=== PATIENT | male | born 1930 | race Caucasian/White ===

== ENCOUNTER 2017-08-28 12:18 | Inpatient (IN) | payer OTHER ==
[2017-08-28] VITALS (7 sets, daily range): BP systolic 77–154; BP diastolic 44–97
[~2017-08-28] VITALS: Ht 172.7 cm; Wt 85.2 kg
[2017-08-28 12:42] LABS: BASOPHIL COUNT 0.1 K/uL (0-0.1); EOSINOPHIL (%) 4.1 % (0-5); EOSINOPHIL COUNT 0.3 K/uL (0-0.3); HEMATOCRIT 38.5 % (38.0-50.0); IMMATURE GRANULOCYTE (%) 1.9 % (0.0-0.7); IMMATURE GRANULOCYTE COUNT 0.1 K/uL; INSTRUMENT ABS NEUTROPHIL CT 5.4 K/uL; MCHC 31.9 G/DL (30.0-36.0); MCV 90.8 FL (86-99); MEAN PLAT.VOLUME 11.4 uM^3 (9.0-12.4); MONOCYTE (%) 7.5 % (3-12); MONOCYTE COUNT 0.6 K/uL (0-0.8); NEUTROPHIL (%) 72.8 % (45-76); NEUTROPHIL COUNT 5.4 K/uL (1.8-6.4); PLATELET COUNT 149 K/uL (156-360); RBC DIS.WIDTH-CV 15.1 % (11.8-14.6); RBC DIS.WIDTH-SD 50.4 % (39-53); RED BLOOD COUNT 4.24 M/uL (4.00-5.50); WHITE BLOOD COUNT 7.4 K/uL (4.1-10.2)
[2017-08-28 12:54] LABS: AMYLASE 88 IU/L (1-118); CHLORIDE 103 mEq/L (99-109); POTASSIUM 3.8 mEq/L (3.7-5.4); SODIUM 143 mEq/L (136-147)
[2017-08-28 12:56] LABS: GLUCOSE 104 mg/dL (70-99)
[2017-08-28 12:57] LABS: ANION GAP 8 MEQ/L (2-14)
[2017-08-28 12:59] LABS: SERUM ETHYL ALCOHOL < 10 mg/dL
[2017-08-28 13:00] LABS: GFR ESTIMATE (CALCULATED) > 59 mL/min/
[2017-08-28 13:01] LABS: UREA NITROGEN (BUN) 25 mg/dL (9-23)
[2017-08-28 13:03] LABS: LIPASE 73 U/L (1.0-51.0)
[2017-08-28 14:01] LABS: ADD MIUA? YES; BILIRUBIN NEGATIVE; BLOOD LARGE; COLOR STRAW ((YELLOW)); GLUCOSE (STRIP) NEGATIVE; KETONES NEGATIVE; LEUKOCYTES NEGATIVE; NITRITE NEGATIVE; PROTEIN (STRIP) NEGATIVE; UROBILINOGEN 0.2 MG/DL (0.2-1.0)
[2017-08-28 14:10] LABS: AMPHETAMINE NEGATIVE (500 ng/mL); BACTERIA NONE SEEN /HPF; BARBITURATES NEGATIVE (200 ng/mL); BENZODIAZEPINES NEGATIVE (150 ng/mL); COCAINE NEGATIVE (150 ng/mL); EPITHELIAL CELLS NONE SEEN /HPF; INTERNAL CONTROLS VALID? YES; METHADONE NEGATIVE (200 ng/mL); METHAMPHETAMINE NEGATIVE (500 ng/mL); MUCUS TRACE /LPF; OPIATES (MORPHINE) NEGATIVE (100 ng/mL); OXYCODONE NEGATIVE (100 ng/mL); PHENCYCLIDINE NEGATIVE (25 ng/mL); PROPOXYPHENE NEGATIVE (300 ng/mL); RED BLOOD CELLS TNTC /HPF (0-5); THC CANNABINOIDS NEGATIVE (50 ng/mL); TRICYCLIC ANTIDEPRESSANTS NEGATIVE (300 ng/mL); UCUL ADDED? YES; WHITE BLOOD CELLS 0-5 /HPF (0-5)
[2017-08-28] MEDS ORDERED: CARVEDILOL25 MG PO (14:59)
[2017-08-28] MEDS ORDERED: LASIX80 MG PO (14:59)
[2017-08-28] MEDS ORDERED: ASPIRIN81 M2 PO (15:00)
[2017-08-28] MEDS ORDERED: ATORVASTATIN CA20 MG PO (15:00)
[2017-08-28] MEDS ORDERED: IRON18 MG PO (15:01)
[2017-08-28] MEDS ORDERED: CENTRUM SILVER1 EAC5 PO (15:01)
[2017-08-28] MEDS ORDERED: CALCIUM + VITA1 EAC2 PO (15:02)
[2017-08-28] MEDS ORDERED: PRESERVISION T1 EACH PO (15:02)
[2017-08-28 18:39] LABS: METH RESISTANT S AUREUS PCR NEGATIVE (NEGATIVE)
[2017-08-28 19:05] LABS: PROBE CHECK PASS; SPECIMEN PROCESSING CONTROL PASS
[2017-08-29] VITALS (14 sets, daily range): BP systolic 0–130; BP diastolic 0–68
[2017-08-29 06:30] LABS: HEMATOCRIT 29.5 % (38.0-50.0); MCH 29.3 PG (29.0-34.0); MCHC 32.2 G/DL (30.0-36.0); MEAN PLAT.VOLUME 12.1 uM^3 (9.0-12.4); PLATELET COUNT 117 K/uL (156-360); RBC DIS.WIDTH-CV 15.2 % (11.8-14.6); RBC DIS.WIDTH-SD 50.8 % (39-53); WHITE BLOOD COUNT 9.2 K/uL (4.1-10.2)
[2017-08-29 06:48] LABS: ALKALINE PHOSPHATASE 53 IU/L (3-129); ANION GAP 7 MEQ/L (2-14); CHLORIDE 104 MEQ/L (99-109); GFR ESTIMATE (CALCULATED) 47 mL/min/; GLUCOSE 129 mg/dL (70-99); POTASSIUM 3.8 MEQ/L (3.7-5.4); SAMPLE HEMOLYSIS CHECK 0; SAMPLE ICTERIC CHECK 0; SAMPLE LIPEMIA CHECK 0; SODIUM 145 MEQ/L (136-147); TOTAL BILIRUBIN 0.8 MG/DL (0.0-1.0); UREA NITROGEN (BUN) 31 mg/dL (9-23)
[2017-08-29 06:50] LABS: RED BLOOD COUNT 3.24 M/uL (4.00-5.50)
[2017-08-29 11:06] LABS: LACTATE DEHYDROGENASE 219 IU/L (20-246); URIC ACID 6.8 mg/dL (3.1-9.2)
[2017-08-29 12:43] LABS: EOSINOPHIL (%) 2.3 % (0-5); EOSINOPHIL COUNT 0.2 K/uL (0-0.3); HEMATOCRIT 28.5 % (38.0-50.0); IMMATURE GRANULOCYTE (%) 0.3 % (0.0-0.7); INSTRUMENT ABS NEUTROPHIL CT 7.2 K/uL; LYMPHOCYTE COUNT 0.9 K/uL (1.0-2.8); MCH 29.8 PG (29.0-34.0); MCHC 32.6 G/DL (30.0-36.0); MCV 91.3 FL (86-99); MEAN PLAT.VOLUME 12.3 uM^3 (9.0-12.4); MONOCYTE (%) 7.9 % (3-12); MONOCYTE COUNT 0.7 K/uL (0-0.8); NEUTROPHIL (%) 79.2 % (45-76); NEUTROPHIL COUNT 7.2 K/uL (1.8-6.4); NRBC (%) 0.4 /100 WBC (0-0); PLATELET COUNT 115 K/uL (156-360); RBC DIS.WIDTH-CV 15.3 % (11.8-14.6); RBC DIS.WIDTH-SD 50.7 % (39-53); RED BLOOD COUNT 3.12 M/uL (4.00-5.50); WHITE BLOOD COUNT 9.1 K/uL (4.1-10.2)
[2017-08-29 12:46] LABS: INTER. NORMALIZED RATIO 1.2; PROTHROMBIN TIME 13.3 SEC (10.2-12.9)
[2017-08-29 12:49] LABS: PTT 29.3 SEC (25-37)
[2017-08-30] VITALS (8 sets, daily range): BP systolic 94–130; BP diastolic 54–69
[2017-08-30 05:27] LABS: BASOPHIL COUNT 0.1 K/uL (0-0.1); EOSINOPHIL (%) 4.5 % (0-5); EOSINOPHIL COUNT 0.5 K/uL (0-0.3); HEMATOCRIT 28.7 % (38.0-50.0); IMMATURE GRANULOCYTE (%) 0.4 % (0.0-0.7); INSTRUMENT ABS NEUTROPHIL CT 7.7 K/uL; LYMPHOCYTE COUNT 0.8 K/uL (1.0-2.8); MCH 29.2 PG (29.0-34.0); MCHC 31.7 G/DL (30.0-36.0); MEAN PLAT.VOLUME 12.2 uM^3 (9.0-12.4); MONOCYTE (%) 8.6 % (3-12); MONOCYTE COUNT 0.9 K/uL (0-0.8); NEUTROPHIL (%) 77.6 % (45-76); NEUTROPHIL COUNT 7.7 K/uL (1.8-6.4); PLATELET COUNT 111 K/uL (156-360); RBC DIS.WIDTH-CV 15.4 % (11.8-14.6); RBC DIS.WIDTH-SD 51.3 % (39-53); RED BLOOD COUNT 3.12 M/uL (4.00-5.50)
[2017-08-30 05:35] LABS: INTER. NORMALIZED RATIO 1.1; PROTHROMBIN TIME 12.6 SEC (10.2-12.9)
[2017-08-30 05:37] LABS: PTT 27.8 SEC (25-37)
[2017-08-30 05:53] LABS: ANION GAP 5 MEQ/L (2-14); CHLORIDE 101 MEQ/L (99-109); GFR ESTIMATE (CALCULATED) 55 mL/min/; GLUCOSE 125 mg/dL (70-99); POTASSIUM 3.7 MEQ/L (3.7-5.4); SAMPLE HEMOLYSIS CHECK 0; SAMPLE ICTERIC CHECK 0; SAMPLE LIPEMIA CHECK 0; SODIUM 140 MEQ/L (136-147); UREA NITROGEN (BUN) 31 mg/dL (9-23)
[2017-08-30 11:23] LABS: HPCA INDEX 0.15
[2017-08-30 11:24] LABS: HIV INDEX 0.08; HIV-1/2 AB/AG COMBO Nonreactive
[2017-08-31 04:33] VITALS: BP 127/58
[2017-08-31 07:00] LABS: EOSINOPHIL (%) 4.3 % (0-5); EOSINOPHIL COUNT 0.4 K/uL (0-0.3); IMMATURE GRANULOCYTE (%) 0.5 % (0.0-0.7); INSTRUMENT ABS NEUTROPHIL CT 6.5 K/uL; LYMPHOCYTE COUNT 0.9 K/uL (1.0-2.8); MCHC 31.9 G/DL (30.0-36.0); MCV 90.9 FL (86-99); MEAN PLAT.VOLUME 12.1 uM^3 (9.0-12.4); MONOCYTE (%) 9.9 % (3-12); MONOCYTE COUNT 0.9 K/uL (0-0.8); NEUTROPHIL (%) 74.4 % (45-76); NEUTROPHIL COUNT 6.5 K/uL (1.8-6.4); PLATELET COUNT 104 K/uL (156-360); RBC DIS.WIDTH-CV 14.9 % (11.8-14.6); RBC DIS.WIDTH-SD 49.6 % (39-53); RED BLOOD COUNT 2.97 M/uL (4.00-5.50); WHITE BLOOD COUNT 8.8 K/uL (4.1-10.2)
[2017-08-31 07:25] LABS: ANION GAP 5 MEQ/L (2-14); CHLORIDE 103 MEQ/L (99-109); GFR ESTIMATE (CALCULATED) > 59 mL/min/; GLUCOSE 125 mg/dL (70-99); POTASSIUM 4.1 MEQ/L (3.7-5.4); SAMPLE HEMOLYSIS CHECK 0; SAMPLE ICTERIC CHECK 0; SAMPLE LIPEMIA CHECK 0; SODIUM 142 MEQ/L (136-147); UREA NITROGEN (BUN) 29 mg/dL (9-23)
[2017-08-31 08:06] VITALS: BP 138/72
[2017-08-31 11:44] VITALS: BP 132/67
[2017-08-31 15:34] VITALS: BP 114/59
[2017-08-31 19:32] VITALS: BP 120/58
[2017-09-01 00:08] VITALS: BP 160/88
[2017-09-01 04:11] VITALS: BP 114/56
[2017-09-01 08:07] VITALS: BP 138/79
[2017-09-01 10:45] LABS: Flow Clinical Information NOT PROVIDED (()); Flow Number of Markers 14 (()); Flow Spec Viability 62 % (()); Flow Specimen Type LYMPH NODE (())
[2017-09-01 12:14] VITALS: BP 109/60
[2017-09-01 16:30] VITALS: BP 151/79
[2017-09-01 20:18] VITALS: BP 106/58
[2017-09-02 00:32] VITALS: BP 126/71
[2017-09-02 04:07] VITALS: BP 139/86
[2017-09-02 08:09] VITALS: BP 161/75
[2017-09-02 09:58] LABS: EOSINOPHIL (%) 2.6 % (0-5); EOSINOPHIL COUNT 0.2 K/uL (0-0.3); IMMATURE GRANULOCYTE (%) 0.2 % (0.0-0.7); INSTRUMENT ABS NEUTROPHIL CT 7.3 K/uL; LYMPHOCYTE COUNT 0.6 K/uL (1.0-2.8); MCH 28.7 PG (29.0-34.0); MCHC 31.7 G/DL (30.0-36.0); MCV 90.3 FL (86-99); MEAN PLAT.VOLUME 11.5 uM^3 (9.0-12.4); MONOCYTE (%) 6.5 % (3-12); MONOCYTE COUNT 0.6 K/uL (0-0.8); NEUTROPHIL (%) 83.4 % (45-76); NEUTROPHIL COUNT 7.3 K/uL (1.8-6.4); RBC DIS.WIDTH-CV 14.4 % (11.8-14.6); RBC DIS.WIDTH-SD 47.6 % (39-53); RED BLOOD COUNT 3.21 M/uL (4.00-5.50); WHITE BLOOD COUNT 8.7 K/uL (4.1-10.2)
[2017-09-02 10:01] LABS: PLATELET COUNT 151 K/uL (156-360)
[2017-09-02 11:28] VITALS: BP 116/56
[2017-09-02 16:39] VITALS: BP 117/71
[2017-09-02 20:11] VITALS: BP 146/70
[2017-09-03 01:03] VITALS: BP 118/61
[2017-09-03 04:00] VITALS: BP 138/91
[2017-09-03 08:47] LABS: MNPH Specimen Volume 825 mL (())
[2017-09-03] MEDS ORDERED: Milk Of Magnesia,MOM PO (11:00)
[2017-09-03] MEDS ORDERED: MAG-AL PLUS SUS30 ML PO (11:00)
[2017-09-03] MEDS ORDERED: TYLENOL REGULA325 MG PO (11:00)
[2017-09-03] MEDS ORDERED: POLYETHYLENE GL17 GM PO (11:00)
[2017-09-03] MEDS ORDERED: NIFEREX-150,FE150 MG PO (11:00)
[2017-09-03] MEDS ORDERED: DOCUSATE SODIU100 MG PO (11:00)
[2017-09-03] MEDS ORDERED: SENNA LAX8.6 MG PO (11:00)
[2017-09-03] MEDS ORDERED: ENDOCET 5-3251 EACH PO (11:00)
[2017-09-03] MEDS ORDERED: BISAC-EVAC10 MG PR (11:00)
[2017-09-03] MEDS ORDERED: BISACODYL5 MG PO (11:00)
[2017-09-03] MEDS ORDERED: LIDODERM 5% P1 PATCH TD (11:00)
[2017-09-03] MEDS ORDERED: ASPIRIN EC325 MG PO (11:15)
[2017-09-03 12:20] VITALS: BP 104/63
[2017-09-03 15:10] VITALS: BP 126/83
[2017-09-03 19:29] VITALS: BP 124/68
[2017-09-04 00:26] VITALS: BP 119/70
[2017-09-04 04:26] VITALS: BP 120/75
[2017-09-04 08:10] VITALS: BP 117/57
[2017-09-04] MEDS ORDERED: VITAMIN D33000 UNIT PO (09:34)
[2017-09-04 11:16] LABS: ANION GAP 10 MEQ/L (2-14); CHLORIDE 100 MEQ/L (99-109); GFR ESTIMATE (CALCULATED) > 59 mL/min/ (58.99-99999); GLUCOSE 148 mg/dL (70-99); MAGNESIUM 2.3 mg/dl (1.3-2.7); POTASSIUM 3.8 MEQ/L (3.7-5.4); SAMPLE HEMOLYSIS CHECK 0; SAMPLE ICTERIC CHECK 0; SAMPLE LIPEMIA CHECK 0; SODIUM 141 MEQ/L (136-147); UREA NITROGEN (BUN) 33 mg/dL (9-23)
[2017-09-04 12:23] VITALS: BP 112/62
[2017-09-04 16:00] VITALS: BP 129/63
[2017-09-04 19:19] VITALS: BP 136/76
[2017-09-05] VITALS (7 sets, daily range): BP systolic 114–147; BP diastolic 57–78
[2017-09-06 04:20] VITALS: BP 136/80
[2017-09-06 08:18] VITALS: BP 123/79
[2017-09-06 12:07] VITALS: BP 110/68
[2017-09-06 15:48] VITALS: BP 127/65
[2017-09-06 20:34] VITALS: BP 150/69
[2017-09-07 00:03] VITALS: BP 120/61
[2017-09-07 04:51] VITALS: BP 137/71
[2017-09-07 07:47] VITALS: BP 148/71
[2017-09-07 11:36] VITALS: BP 120/78
[2017-09-07 15:53] VITALS: BP 120/77
[2017-09-07] MEDS ORDERED: BENADRYL25 MG PO (16:22)
== END 2017-09-07 18:31 | DRG 964 ==
LOC: TRA 12:18 → 4WEST 14:40 → EDOF 14:40 → 3EAST 14:40 → ENRESERV 14:41 → 4WEST 17:03 → ENRESERV 08-30 12:50 → 3EAST 08-30 17:24
PROVIDERS: Emergency Medicine; Internal Medicine; Physician Assistant; Physician Assistant Surgical; Surgery
PROC: 07D73ZX Extraction of Thorax Lymphatic, Percutaneous Approach, Diagnostic (ICD-10-PCS; principal; 2017-08-29)
DX: S32.592A Other specified fracture of left pubis, initial encounter for closed fracture (principal); S32.402A Unspecified fracture of left acetabulum, initial encounter for closed fracture; S27.2XXA Traumatic hemopneumothorax, initial encounter; S22.42XA Multiple fractures of ribs, left side, initial encounter for closed fracture; V43.52XA Car driver injured in collision with other type car in traffic accident, initial encounter; Y92.410 Unspecified street and highway as the place of occurrence of the external cause; D44.6 Neoplasm of uncertain behavior of carotid body; D64.9 Anemia, unspecified; J90 Pleural effusion, not elsewhere classified; J98.11 Atelectasis; I11.0 Hypertensive heart disease with heart failure; I50.9 Heart failure, unspecified; R59.1 Generalized enlarged lymph nodes; I27.20 Pulmonary hypertension, unspecified; I35.0 Nonrheumatic aortic (valve) stenosis; I48.2 Chronic atrial fibrillation; J44.9 Chronic obstructive pulmonary disease, unspecified; I25.10 Atherosclerotic heart disease of native coronary artery without angina pectoris; K59.00 Constipation, unspecified; M54.9 Dorsalgia, unspecified; E78.5 Hyperlipidemia, unspecified; R31.29 Other microscopic hematuria; Z79.82 Long term (current) use of aspirin; Z87.891 Personal history of nicotine dependence; Z95.1 Presence of aortocoronary bypass graft; Z95.3 Presence of xenogenic heart valve; Z75.1 Person awaiting admission to adequate facility elsewhere
CPT/HCPCS: 70450; 71010; 71260; 72125; 73502; 74176; 77012; 80048; 80053; 81003; 82150; 83615; 83690; 83735; 83835 90; 84550; 85025; 85027; 85610; 85730; 86703; 86803; 86850; 86900; 86901; 87086; 87641; 88305; 88341 TC; 88342 TC; 93005; 93306; 94799; 97530 GO; 97530 GP; 99281; 99285; G0480; J1170; J7030